=== PATIENT | female | born 2000 | race Caucasian/White ===

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

== ENCOUNTER 2020-02-18 19:07 | Emergency (ER) | payer OTHER ==
[~2020-02-18] VITALS: Ht 165.1 cm; Wt 70.3 kg
[2020-02-18 19:38] LABS: URINE BILIRUBIN NEGATIVE (Negative); URINE BLOOD 1+ (Negative); URINE CLARITY CLEAR; URINE COLOR YELLOW; URINE GLUCOSE-RANDOM NEGATIVE (Negative); URINE KETONES NEGATIVE (Negative); URINE LEUKOCYTES-REFLEX 1+ (Negative); URINE NITRITE-REFLEX NEGATIVE (Negative); URINE PROTEIN NEGATIVE (Negative); URINE UROBILINOGEN 0.2 E.U./dl (0.2-1.0)
[2020-02-18 19:45] LABS: SQUAMOUS 4-10 Moderate /LPF (0-3)
[2020-02-18 19:46] LABS: BACTERIA-REFLEX None Seen /HPF (None Seen); CASTS None Seen /LPF (None Seen); CRYSTALS None Seen /LPF (None Seen); URINE RBC 0-2 Rare /HPF (0-2); URINE WBC-REFLEX 0-5 Rare /HPF (0-5)
[2020-02-18] MEDS ORDERED: DIFLUCAN150 M1 PO (19:51)
[2020-02-18] MEDS ORDERED: MICONAZOLE NITR45 G3 VAG (19:58)
[2020-02-18] MEDS ORDERED: DOXYCYCLINE 10100 M2 PO (20:13)
[2020-02-18 20:45] VITALS: BP 117/72
== END 2020-02-18 20:47 | disposition home or self-care (01) ==
LOC: M.ERS 19:07
PROVIDERS: Physician Assistant
DX: A59.01 Trichomonal vulvovaginitis (principal)

== ENCOUNTER 2020-04-27 21:36 | Emergency (ER) | payer OTHER ==
[~2020-04-27] VITALS: Ht 165.1 cm; Wt 72.6 kg
[~2020-04-27 21:36] MED LIST: DIFLUCAN150 M1 PO; DOXYCYCLINE 10100 M2 PO; MICONAZOLE NITR45 G3 VAG
[2020-04-27 21:52] LABS: URINE BILIRUBIN NEGATIVE (Negative); URINE BLOOD NEGATIVE (Negative); URINE COLOR YELLOW; URINE GLUCOSE-RANDOM NEGATIVE (Negative); URINE KETONES NEGATIVE (Negative); URINE LEUKOCYTES-REFLEX 1+ (Negative); URINE NITRITE-REFLEX NEGATIVE (Negative); URINE PROTEIN NEGATIVE (Negative); URINE UROBILINOGEN 0.2 E.U./dl (0.2-1.0)
[2020-04-27 21:53] LABS: URINE CLARITY HAZY
[2020-04-27 22:00] LABS: SQUAMOUS >10 Many /LPF (0-3)
[2020-04-27 22:01] LABS: BACTERIA-REFLEX None Seen /HPF (None Seen); CASTS None Seen /LPF (None Seen); CRYSTALS None Seen /LPF (None Seen); URINE RBC None Seen /HPF (0-2); URINE WBC-REFLEX 0-5 Rare /HPF (0-5)
[2020-04-27] MEDS ORDERED: DIFLUCAN150 MG PO (23:03)
[2020-04-27] MEDS ORDERED: FLAGYL500 M1 PO (23:03)
[2020-04-27 23:28] VITALS: BP 120/75
== END 2020-04-27 23:29 | disposition home or self-care (01) ==
LOC: M.ERS 21:36
PROVIDERS: Personal Emergency Response Attendant
DX: N76.0 Acute vaginitis (principal)

== ENCOUNTER 2020-06-27 23:25 | Emergency (ER) | payer OTHER ==
[~2020-06-27] VITALS: Ht 165.1 cm; Wt 78.9 kg
[~2020-06-27 23:25] MED LIST changes: +DIFLUCAN150 MG PO; +FLAGYL500 M1 PO
[2020-06-28 00:57] LABS: URINE BILIRUBIN NEGATIVE (Negative); URINE BLOOD 1+ (Negative); URINE CLARITY CLEAR; URINE COLOR YELLOW; URINE GLUCOSE-RANDOM NEGATIVE (Negative); URINE KETONES NEGATIVE (Negative); URINE LEUKOCYTES-REFLEX TRACE (Negative); URINE NITRITE-REFLEX NEGATIVE (Negative); URINE PROTEIN NEGATIVE (Negative); URINE UROBILINOGEN 0.2 E.U./dl (0.2-1.0)
[2020-06-28 01:13] LABS: CASTS None Seen /LPF (None Seen); SQUAMOUS >10 Many /LPF (0-3)
[2020-06-28 01:16] LABS: CRYSTALS None Seen /LPF (None Seen); URINE RBC 3-10 Few /HPF (0-2)
[2020-06-28] MEDS ORDERED: DIFLUCAN150 M1 PO (01:21)
[2020-06-28] MEDS ORDERED: BACTRIM DS TAB1 EACH PO (01:21)
[2020-06-28] MEDS ORDERED: FLAGYL500 M1 PO (01:21)
[2020-06-28 01:39] VITALS: BP 108/52
== END 2020-06-28 01:41 | disposition home or self-care (01) ==
LOC: M.ERS 23:25
PROVIDERS: Emergency Medicine
DX: N76.0 Acute vaginitis (principal); N39.0 Urinary tract infection, site not specified

== ENCOUNTER 2020-07-17 22:11 | Emergency (ER) | payer OTHER ==
[~2020-07-17] VITALS: Ht 165.1 cm; Wt 81.7 kg
[~2020-07-17 22:11] MED LIST changes: +BACTRIM DS TAB1 EACH PO
[2020-07-17] MEDS ORDERED: BACTRIM DS TAB1 EACH PO (22:39)
[2020-07-17] MEDS ORDERED: KEFLEX500 M1 PO (22:39)
[2020-07-17] MEDS ORDERED: MUPIROCIN15 GM TOP (22:39)
[2020-07-17 23:21] VITALS: BP 128/58
== END 2020-07-17 23:21 | disposition home or self-care (01) ==
LOC: M.ERS 22:11
DX: S70.211A Abrasion, right hip, initial encounter (principal); S80.811A Abrasion, right lower leg, initial encounter; L03.115 Cellulitis of right lower limb; M41.9 Scoliosis, unspecified; W05.1XXA Fall from non-moving nonmotorized scooter, initial encounter; Y93.89 Activity, other specified; Y92.89 Other specified places as the place of occurrence of the external cause; Y99.8 Other external cause status

== ENCOUNTER 2020-07-22 13:26 | Emergency (ER) | payer OTHER ==
[~2020-07-22] VITALS: Ht 165.1 cm; Wt 78.0 kg
[~2020-07-22 13:26] MED LIST changes: +KEFLEX500 M1 PO; +MUPIROCIN15 GM TOP
[2020-07-22 13:36] VITALS: BP 114/64
[2020-07-22] MEDS ORDERED: MUPIROCIN15 GM TOP (13:55)
== END 2020-07-22 14:04 | disposition home or self-care (01) ==
LOC: M.ERS 13:26
DX: S70.311A Abrasion, right thigh, initial encounter (principal); S80.811A Abrasion, right lower leg, initial encounter; M41.9 Scoliosis, unspecified; V00.148A Other scooter (nonmotorized) accident, initial encounter; Y93.89 Activity, other specified; Y92.89 Other specified places as the place of occurrence of the external cause; Y99.8 Other external cause status

== ENCOUNTER 2021-10-17 20:37 | Emergency (ER) | payer OTHER ==
[~2021-10-17] VITALS: Ht 165.1 cm; Wt 77.1 kg
[2021-10-17 23:29] LABS: URINE BILIRUBIN NEGATIVE (Negative); URINE BLOOD TRACE (Negative); URINE CLARITY CLEAR; URINE COLOR YELLOW; URINE GLUCOSE-RANDOM NEGATIVE (Negative); URINE KETONES NEGATIVE (Negative); URINE LEUKOCYTES NEGATIVE (Negative); URINE NITRITE NEGATIVE (Negative); URINE PROTEIN NEGATIVE (Negative); URINE SPECIFIC GRAVITY 1.025 (1.005-1.030)
[2021-10-18 01:40] LABS: ABSOLUTE BASOPHILS 0.1 thou/uL (0.0-0.2); ABSOLUTE EOSINOPHILS 0.2 thou/uL (0.0-0.7); ABSOLUTE LYMPHOCYTES 2.9 thou/uL (0.8-5.3); ABSOLUTE MONOCYTES 0.9 thou/uL (0.0-1.2); ABSOLUTE NEUTROPHILS 5.1 thou/uL (1.6-8.1); EOSINOPHILS 2.2 %; HEMOGLOBIN 14.1 gm/dL (12.0-15.0); LYMPHOCYTES 31.7 %; MCH 30.5 pg (26.0-34.0); MCHC 33.5 g/dL (28.0-37.0); MCV 91.1 fL (80.0-100.0); MONOCYTES 9.4 %; NUCLEATED RBCS 0 /100WBC; PLATELET COUNT* 263 thou/uL (150-400); POLYS 55.7 %; RBC 4.61 mil/uL (4.20-5.00); RDW-CV 13.1 % (10.5-14.5); WBC 9.2 thou/uL (4.0-11.0)
[2021-10-18 01:42] LABS: CREATININE 0.7 mg/dL (0.6-1.3); POTASSIUM 3.9 mmol/L (3.5-5.1)
[2021-10-18] MEDS ORDERED: METRONIDAZOLE500 M4 PO (02:29)
[2021-10-18 02:42] VITALS: BP 122/67
== END 2021-10-18 02:42 | disposition home or self-care (01) ==
LOC: M.ERS 20:37
PROVIDERS: Personal Emergency Response Attendant; Physician Assistant
DX: N76.0 Acute vaginitis (principal); R10.2 Pelvic and perineal pain

== ENCOUNTER 2021-11-15 12:57 | Emergency (ER) | payer OTHER ==
[~2021-11-15] VITALS: Ht 165.1 cm; Wt 86.2 kg
[~2021-11-15 12:57] MED LIST changes: +METRONIDAZOLE500 M4 PO
[2021-11-15] MEDS ORDERED: HYDROXYZINE HCL25 M2 PO (15:35)
[2021-11-15 15:38] VITALS: BP 130/69
--- NOTE | 2021-11-16 12:21 | EKG ---
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
== END 2021-11-15 15:38 | disposition home or self-care (01) ==
LOC: M.ERS 12:57
DX: F41.9 Anxiety disorder, unspecified (principal)